=== PATIENT | male | born 1975 | race African-American/Black ===

== ENCOUNTER 2017-11-12 14:35 | Emergency (ER) | payer MEDICAID ==
[~2017-11-12] VITALS: Ht 182.9 cm; Wt 79.4 kg
[2017-11-12 15:15] VITALS: BP 179/122
[2017-11-12] MEDS ORDERED: BENAZEPRIL HCL40 MG ORAL (15:15)
[2017-11-12] MEDS ORDERED: NORVASC10 MG ORAL (15:15)
[2017-11-12] MEDS ORDERED: Benazepril 10mg tab ONE (15:20)
--- NOTE | 2017-11-12 15:20 | Emergency Room Report ---
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 States admitted for "33 days." Was DCed without Rx Had HD yesterday Currently asymptomatic Has HD scheduled tomorrow States "hasnt seen a doctor in years" but goes to HD 3x a a week Allergies: Coded Allergies: No Known Allergies (Unverified , 11/12/17) Patient History Past Medical History: HTN, renal disease, dialysis Past Surgical History: none Pertinent Family History: none Social History: Denies: smoking, alcohol use, drug use Immunizations: UTD Reviewed Nursing Documentation: PMH: Agreed, PSxH: Agreed Nursing Documentation-PMH Hx Hypertension: Yes Hx Dialysis: Yes - Tue, Thur, Sat Review of Systems All Other Systems: negative except mentioned in HPI Physical Exam Vital Signs Date Time Temp Pulse Resp B/P (MAP) Pulse Ox O2 Delivery O2 Flow Rate FiO2 11/12/17 14:39 98.0 99 18 179/122 97 Room Air 98.1 Sp02 EP Interpretation: reviewed, normal General Appearance: normal inspection, well appearing, no apparent distress, alert, GCS 15, non-toxic Head: normocephalic, atraumatic Eyes: bilateral eye PERRL, bilateral eye EOMI ENT: normal ENT inspection, hearing grossly normal, normal pharynx, no angioedema, normal voice, TMs + canals normal, uvula midline, moist mucus membranes Neck: normal inspection, full range of motion, supple, thyroid normal, no meningismus, no bony tend Respiratory: normal inspection, lungs clear, normal breath sounds, no rhonchi, no respiratory distress, no retraction, no accessory muscle use, no wheezing, speaking full sentences Cardiovascular #1: regular rate, rhythm, no edema, no JVD, normal capillary refill Gastrointestinal: normal inspection, normal bowel sounds, non tender, soft, no mass, no peritonitis, non-distended, no guarding, no hernia, no pulsatile mass Genitourinary: no CVA tenderness Musculoskeletal: normal inspection, back normal, normal range of motion, no calf tenderness, pelvis stable, Kathleen's Sign negative Neurologic: normal inspection, alert, oriented x3, responsive, hydrant setter III-XII nml as tested, motor strength/tone normal, cerebellar normal, normal gait, speech normal Psychiatric: normal inspection, judgement/insight normal, mood/affect normal, no suicidal/homicidal ideation, no delusions Skin: normal inspection, normal color, no rash Lymphatic: normal inspection, no adenopathy Medical Decision Making Diagnostic Impression: Primary Impression: Medication refill ER Course VS notable for high BP Lungs CTAB, no peripheral edema - unlikely acute pulm edema given HD yesterday and O2 sat normal and not tachypnic Was given dose of boh HTN meds here Rx provided Advised to ask nephro tomorrow for PMD referral Advised we cannot give Rx refills on meds from the ED ER course: Patient has remained stable during ED stay. Disposition: Patient is to be discharged to home. Prescriptions given are norvasc, benazepril Patient is instructed to follow up with their primary care doctor within 5 days. Strict return precautions discussed with patient such as fever, chills, worsening/severe pain, nausea, vomiting, which may indicate severe illness. Patient verbalizes understanding and agrees with plan. Please note that this Emergency Department Report was dictated using [employer] state pharmacy technology software, occasionally this can lead to erroneous entry secondary to interpretation by the dictation equipment Last Vital Signs Date Time Temp Pulse Resp B/P (MAP) Pulse Ox O2 Delivery O2 Flow Rate FiO2 11/12/17 15:15 98.1 18 179/122 97 Room Air 98.1 11/12/17 15:15 99 Status: improved Disposition: HOME, SELF-CARE Condition: Improved Scripts Benazepril Hcl* (BENAZEPRIL HCL*) 40 Mg Tablet 40 MG ORAL DAILY for 30 Days, #30 TAB Prov: ISA ESCOBEDO M.D. 11/12/17 Amlodipine Besylate (Norvasc) 10 Mg Tablet 10 MG ORAL DAILY for 30 Days, #30 TAB Prov: ISA ESCOBEDO M.D. 11/12/17 Additional Instructions: - Take benazepril and norvasc starting WEDNESDAY/Tomorrow each day as prescribed - Ask your kidney doctor/software intern tomorrow to refer you to primary care doctor to manage your high blood pressure and refill your medications - These medications can affect your potassium so please have your primary care doctor check your K level and kidney function soon ISA ESCOBEDO M.D. Nov 12, 2017 15:20
[2017-11-12 15:40] VITALS: BP 179/122
== END 2017-11-12 15:40 | disposition home or self-care (01) ==
LOC: EMR 15:30
DX: R07.9 Chest pain, unspecified (principal); I12.9 Hypertensive chronic kidney disease with stage 1 through stage 4 chronic kidney disease, or unspecified chronic kidney disease; N18.9 Chronic kidney disease, unspecified; Z99.2 Dependence on renal dialysis
CPT/HCPCS: 99284

== ENCOUNTER 2018-04-19 02:55 | Emergency (ER) | payer MEDICARE, MEDICAID ==
[~2018-04-19] VITALS: Ht 180.3 cm; Wt 88.0 kg
[~2018-04-19 02:55] MED LIST: BENAZEPRIL HCL40 MG ORAL; NORVASC10 MG ORAL
[2018-04-19 03:20] VITALS: BP 178/130
[2018-04-19] MEDS ORDERED: Benazepril 10mg tab ONE (03:32)
[2018-04-19 03:40] VITALS: BP 178/130
--- NOTE | 2018-04-19 04:56 | Emergency Room Report ---
History of Present Illness General Chief Complaint: General Complaint Source: Patient Present Illness HPI Patient presents with complaints of requiring dressing for his dialysis catheter site Patient reports that he was taken a bath And the dressing on the right upper chest started to come loose Patient denies any chest pain or shortness of breath Patient was recently discharged from another facility Reports that he lost his medication And requesting blood pressure medication He does not know the specific name Patient has similar presentation previously where he had been recently disposition from another hospital, and presented here requesting blood pressure medicine as well Patient has dialysis Wednesday and Wednesday and is due for dialysis in 3- 4 hours Allergies: Coded Allergies: No Known Allergies (Unverified , 11/12/17) Patient History Past Medical History: see triage record Pertinent Family History: none Reviewed Nursing Documentation: PMH: Agreed; PSxH: Agreed Nursing Documentation-PMH Hx Hypertension: Yes Hx Dialysis: Yes - Wed, , Wed Review of Systems All Other Systems: negative except mentioned in HPI Physical Exam Vital Signs Date Time Temp Pulse Resp B/P (MAP) Pulse Ox O2 Delivery O2 Flow Rate FiO2 04/19/18 03:02 97.9 99 16 178/130 97 Room Air 97.9 Sp02 EP Interpretation: reviewed, normal General Appearance: well appearing, no apparent distress Head: normocephalic, atraumatic Eyes: bilateral eye PERRL, bilateral eye EOMI ENT: hearing grossly normal, normal pharynx Neck: full range of motion, supple Respiratory: lungs clear Cardiovascular #1: regular rate, rhythm Gastrointestinal: non tender, soft Musculoskeletal: normal inspection Neurologic: alert, oriented x3, responsive Skin: other - Indwelling dialysis catheter right upper chest there is a suture in place however patient's dressing has completely been removed from the top area of the catheter Lymphatic: no adenopathy Medical Decision Making Diagnostic Impression: Primary Impression: renal failure Additional Impression: dressing change ER Course Patient had ChloraPrep rinsing of the area of the catheter Sterile dressing was applied Patient was provided oral medication here I had a discussion regarding the need for close follow-up with his interventional radiology tech he will be seeing them in the next few hours And to continue medication prescribed by them Last Vital Signs Date Time Temp Pulse Resp B/P (MAP) Pulse Ox O2 Delivery O2 Flow Rate FiO2 04/19/18 03:40 97.9 99 16 178/130 97 Room Air 97.9 Status: improved Disposition: HOME, SELF-CARE Condition: Stable Referrals: NON PHYSICIAN (PCP) Patient Instructions: Tunneled Catheter Insertion, Care After, Dressing Change Additional Instructions: Patient is provided with the discharge instructions notified to follow up with primary doctor in the next 2-3 days otherwise return to the er with any worsening symptoms. Please note that this report is being documented using [employer] technology. This can lead to erroneous entry secondary to incorrect interpretation by the dictating instrument. Zac Mayberry DO Apr 19, 2018 04:56
[2018-04-19] MEDS ORDERED: Benazepril 10mg tab ORAL ONE (09:00)
== END 2018-04-19 03:40 | disposition home or self-care (01) ==
LOC: EMR 03:16
DX: I12.0 Hypertensive chronic kidney disease with stage 5 chronic kidney disease or end stage renal disease (principal); N18.6 End stage renal disease; Z99.2 Dependence on renal dialysis; Z48.01 Encounter for change or removal of surgical wound dressing
CPT/HCPCS: 99283